=== PATIENT | male | born 1990 | race Caucasian/White ===

== ENCOUNTER 2018-07-24 08:37 | Emergency (ER) | payer BC, OTHER ==
[~2018-07-24] VITALS: Ht 167.6 cm; Wt 71.8 kg
[2018-07-24 08:37] VITALS: BP 128/73
--- NOTE | 2018-07-24 09:32 | REP ---
Clinical: Pain primarily noted over first metatarsal. Technique: AP, lateral, bilateral oblique views right foot. Findings: The osseous structures and joint spaces are intact and normal. There is no evidence for acute fracture or dislocation. Surrounding soft tissues are unremarkable. No subcutaneous emphysema or radiodense foreign body. Impression: Normal examination. No acute fracture dislocation. Electronically Signed by Denzel Don MD 07/24/2018 09:23 A
[2018-07-24] MEDS ORDERED: INDO50CA PO (09:34)
== END 2018-07-24 09:40 | disposition home or self-care (01) ==
LOC: M ED 08:37
DX: M25.571 Pain in right ankle and joints of right foot (principal)

== ENCOUNTER 2018-11-24 22:47 | Emergency (ER) | payer BC ==
[~2018-11-24] VITALS: Ht 167.6 cm; Wt 77.2 kg
[~2018-11-24 22:47] MED LIST: INDO50CA11 PO
[2018-11-24] MEDS ORDERED: RABIES IMMUNE GLOBULIN 1500 INTERNATIONAL UNIT/5ML VIAL (90375) IM ONE ×2 (23:45)
[2018-11-24] MEDS ORDERED: RABIES VACCINE HUMAN 2.5 INTERNATIONAL UNITS/ML VIAL (90675) IM ONE (23:45)
[2018-11-25] MEDS ORDERED: AUGM875T28 PO (00:04)
[2018-11-25] MEDS ORDERED: AUGMENTIN 875 MG TAB PO ONE (00:15)
[2018-11-25] MEDS ORDERED: NEOSPORIN TOP OINT 15GM TOP PRN (00:30)
[2018-11-25 00:32] VITALS: BP 134/96
== END 2018-11-25 00:48 | disposition home or self-care (01) ==
LOC: M ED 22:47
DX: S60.571A Other superficial bite of hand of right hand, initial encounter (principal); S60.572A Other superficial bite of hand of left hand, initial encounter; W55.51XA Bitten by raccoon, initial encounter; Y92.018 Other place in single-family (private) house as the place of occurrence of the external cause

== ENCOUNTER 2018-11-28 11:44 | Emergency (ER) | payer BC ==
[~2018-11-28] VITALS: Ht 167.6 cm; Wt 79.1 kg
[2018-11-28 11:44] VITALS: BP 129/85
[~2018-11-28 11:44] MED LIST changes: +AUGM875T28 PO
[2018-11-28] MEDS ORDERED: RABIES VACCINE HUMAN 2.5 INTERNATIONAL UNITS/ML VIAL (90675) IM ONE (12:00)
== END 2018-11-28 12:37 | disposition home or self-care (01) ==
LOC: M ED 11:44
DX: S61.451A Open bite of right hand, initial encounter (principal); S61.452A Open bite of left hand, initial encounter; W55.51XA Bitten by raccoon, initial encounter; Y92.9 Unspecified place or not applicable; Y93.9 Activity, unspecified; Y99.9 Unspecified external cause status; Z20.3 Contact with and (suspected) exposure to rabies; Z23 Encounter for immunization; F17.220 Nicotine dependence, chewing tobacco, uncomplicated

== ENCOUNTER 2018-12-02 15:40 | Emergency (ER) | payer BC, OTHER ==
[~2018-12-02] VITALS: Ht 167.6 cm; Wt 81.1 kg
[2018-12-02 15:40] VITALS: BP 148/85
[2018-12-02] MEDS ORDERED: RABIES VACCINE HUMAN 2.5 INTERNATIONAL UNITS/ML VIAL (90675) IM ONE (16:00)
== END 2018-12-02 16:30 | disposition home or self-care (01) ==
LOC: M ED 15:40
DX: Z20.3 Contact with and (suspected) exposure to rabies (principal); Z23 Encounter for immunization; S61.451D Open bite of right hand, subsequent encounter; S61.452D Open bite of left hand, subsequent encounter; W55.51XD Bitten by raccoon, subsequent encounter; F17.220 Nicotine dependence, chewing tobacco, uncomplicated

== ENCOUNTER 2018-12-09 17:51 | Emergency (ER) | payer BC, OTHER ==
[~2018-12-09] VITALS: Ht 167.6 cm; Wt 72.7 kg
[2018-12-09] MEDS ORDERED: RABIES VACCINE HUMAN 2.5 INTERNATIONAL UNITS/ML VIAL (90675) IM ONE (18:30)
[2018-12-09 19:01] VITALS: BP 129/92
== END 2018-12-09 19:18 | disposition home or self-care (01) ==
LOC: M ED 17:51
DX: S60.571A Other superficial bite of hand of right hand, initial encounter (principal); S60.572A Other superficial bite of hand of left hand, initial encounter; W55.51XA Bitten by raccoon, initial encounter; Y92.89 Other specified places as the place of occurrence of the external cause